=== PATIENT | female | born 1965 | race Caucasian/White ===

== ENCOUNTER 2017-04-17 16:18 | Inpatient (IN) | payer OTHER ==
[~2017-04-17] VITALS: Ht 154.9 cm; Wt 68.3 kg
[~2017-04-17 16:18] MED LIST: ALEVE220 M2 PO; ALPRAZOLAM0.5 MG PO; ALPRAZOLAM1 MG PO; BACTRIM,SEPT1 TABLET PO; BACTROBAN NASAL1 G1 BOTH NARES; DOXYCYCLINE HY100 M3 PO; DUONEB 2.5-0.5 M3 ML AEROSOL; EFFEXOR XR150 MG PO; ENDOCET 5-3251 EACH PO; ESCITALOPRAM OX10 MG PO; FLEXERIL10 MG PO; HYDROCODON-ACE1 EAC7 PO; LEVOFLOXACIN750 MG PO; LORCET HD 10-31 EACH PO; METRONIDAZOLE500 MG PO; NABUMETONE750 MG PO; NAPROSYN500 MG PO; NICOTINE PATCH1 EAC2 TD; NORCO 5/3251 TABLET PO; OLANZAPINE5 MG PO; PRILOSEC20 MG PO; SENNA8.6 MG PO; SENOKOT,SENN1 TABLET PO; TRAMADOL HCL50 MG PO; TYLENOL REGULA325 MG PO; ULTRAM50 MG PO; UNISOM50 MG PO; VENLAFAXINE HCL75 M3 PO; XANAX1 MG PO; ZANAFLEX4 M1 PO; ZIPRASIDONE HCL20 MG PO
[2017-04-17 18:29] LABS: HEMATOCRIT 43.2 % (36.0-46.0); MCH 31.5 PG (29.0-34.0); MCHC 33.3 G/DL (30.0-36.0); MCV 94.5 FL (83-99); MEAN PLAT.VOLUME 10.3 uM^3 (9.5-12.4); PLATELET COUNT 304 K/uL (156-360); RBC DIS.WIDTH-CV 13.3 % (11.8-14.6); RBC DIS.WIDTH-SD 46.6 % (39-53); RED BLOOD COUNT 4.57 M/uL (3.80-5.20); WHITE BLOOD COUNT 11.7 K/uL (4.1-10.2)
[2017-04-17 18:40] LABS: CHLORIDE 107 mEq/L (99-109); POTASSIUM 3.8 mEq/L (3.7-5.4); SODIUM 142 mEq/L (136-147)
[2017-04-17 18:42] LABS: GLUCOSE 86 mg/dL (70-99)
[2017-04-17 18:43] LABS: ANION GAP 7 MEQ/L (2-14)
[2017-04-17 18:45] LABS: SERUM ETHYL ALCOHOL < 10 mg/dL
[2017-04-17 18:46] LABS: GFR ESTIMATE (CALCULATED) > 59 mL/min/; UREA NITROGEN (BUN) 13 mg/dL (9-23)
[2017-04-17 19:12] LABS: AMPHETAMINE NEGATIVE (500 ng/mL); BARBITURATES NEGATIVE (200 ng/mL); BENZODIAZEPINES PRESUMPTIVE POSITIVE (150 ng/mL); COCAINE NEGATIVE (150 ng/mL); INTERNAL CONTROLS VALID? YES; METHADONE NEGATIVE (200 ng/mL); METHAMPHETAMINE NEGATIVE (500 ng/mL); OPIATES (MORPHINE) PRESUMPTIVE POSITIVE (100 ng/mL); OXYCODONE NEGATIVE (100 ng/mL); PHENCYCLIDINE NEGATIVE (25 ng/mL); PROPOXYPHENE NEGATIVE (300 ng/mL); THC CANNABINOIDS NEGATIVE (50 ng/mL); TRICYCLIC ANTIDEPRESSANTS NEGATIVE (300 ng/mL)
[2017-04-17 19:13] LABS: ADD MEDTOX COMMENT Y
[2017-04-17 19:42] LABS: BENZODIAZEPINES, URINE SCREEN POSITIVE (200 ng/mL)
[2017-04-18 02:14] VITALS: BP 183/97
[2017-04-18] MEDS ORDERED: UNISOM25 MG PO (02:27)
[2017-04-18] MEDS ORDERED: SENNA8.6 MG PO (02:30)
[2017-04-18 07:23] VITALS: BP 127/71
[2017-04-18] MEDS ORDERED: XANAX1 MG PO (10:08)
[2017-04-18] MEDS ORDERED: BUSPAR10 MG PO (10:11)
[2017-04-18 15:24] VITALS: BP 156/91
[2017-04-19 07:35] VITALS: BP 133/84
[2017-04-19 14:55] VITALS: BP 145/77
[2017-04-20 08:10] VITALS: BP 145/81
[2017-04-20 15:50] VITALS: BP 121/68
[2017-04-21 07:49] VITALS: BP 141/81
[2017-04-21 15:29] VITALS: BP 159/97
[2017-04-22 07:48] VITALS: BP 132/82
[2017-04-22] MEDS ORDERED: ARIPIPRAZOLE10 MG PO (09:10)
== END 2017-04-22 10:50 | disposition home or self-care (01) | DRG 885 ==
LOC: EME 16:18 → EDOF 20:43 → 1WEST 20:43 → ENRESERV 04-18 01:39 → 1WEST 04-18 02:06
DX: F33.3 Major depressive disorder, recurrent, severe with psychotic symptoms (principal); F60.0 Paranoid personality disorder; R45.851 Suicidal ideations; R45.850 Homicidal ideations; F41.9 Anxiety disorder, unspecified; F17.200 Nicotine dependence, unspecified, uncomplicated; Z91.14 Patient's other noncompliance with medication regimen
CPT/HCPCS: 80048; 84999; 85027; 90837; 97150 GO; 97165 GO; 99211 TC; 99281; 99285; G0480